=== PATIENT | male | born 1985 | race Caucasian/White ===

== ENCOUNTER 2017-01-10 18:53 | Emergency (ER) | payer OTHER ==
[~2017-01-10] VITALS: Ht 175.3 cm; Wt 83.6 kg
[2017-01-10 19:08] VITALS: BP 127/83
--- NOTE | 2017-01-10 20:05 | RAD ---
History: Injury while playing basketball, swelling. Comparison: None. Findings: AP, lateral, and oblique views of the right ankle. No acute fracture or dislocation is identified. There is some calcification of the interosseous ligament adjacent to the distal tibia. Lateral ankle soft tissue swelling is identified. There is a small well-corticated ossific density adjacent to the medial malleolus, probably representing old avulsion fracture fragment versus ununited apophysis. Impression: 1. No acute osseous traumatic injury identified. 2. Lateral ankle soft tissue swelling. Electronically signed by: Jd Jones MD (01/10/2017 8:02 PM) [facility]
--- NOTE | 2017-01-10 20:12 | PHYS DOC ---
Past History Past Medical History: No Pertinent History Past Surgical History: Other Alcohol Use: Occasionally Drug Use: None Adult General Chief Complaint Chief Complaint: ANKLE PROBLEM HPI HPI Patient is a 31-year-old male presenting to the emergency department for evaluation of right lateral ankle pain status post fall while playing basketball. He reports coming up and then landing directly on his right lateral malleolus and he has not been able to put weight on it since then. He has an abrasion to his medial malleolus and he says that his tetanus is up-to- date. Review of Systems Review of Systems Constitutional: Denies fever or chills [] Neurologic: focal weakness or sensory changes [] Current Medications Current Medications Current Medications Medications (Trade) Dose Ordered Sig/Supriya Start Time Stop Time Status Last Admin Dose Admin Ibuprofen (Motrin) 600 mg 1X ONCE 01/10/17 20:15 01/10/17 20:16 Oxycodone/ Acetaminophen (Percocet 5/325) 2 tab 1X ONCE 01/10/17 20:15 01/10/17 20:16 Allergies Allergies Allergies Coded Allergies Type Severity Reaction Last Updated Verified No Known Drug Allergies 01/10/17 No Physical Exam Physical Exam Constitutional: Well developed, well nourished, no acute distress, non-toxic appearance. [] Extremities: Right ankle with diffuse swelling most notable in the lateral malleolus. He has tenderness on both malleoli but there is no proximal tib-fib pain and there is no bony foot tenderness. Joint is stable and he is distally neurovascularly intact. Neurologic: Alert and oriented X 3, normal motor function, normal sensory function, no focal deficits noted. [] Current Patient Data Vital Signs Vital Signs Date Time Temp Pulse Resp B/P (MAP) Pulse Ox O2 Delivery O2 Flow Rate FiO2 01/10/17 19:08 98.8 88 20 99 Room Air EKG EKG [] Radiology/Procedures Radiology/Procedures History: Injury while playing basketball, swelling. Comparison: None. Findings: AP, lateral, and oblique views of the right ankle. No acute fracture or dislocation is identified. There is some calcification of the interosseous ligament adjacent to the distal tibia. Lateral ankle soft tissue swelling is identified. There is a small well-corticated ossific density adjacent to the medial malleolus, probably representing old avulsion fracture fragment versus ununited apophysis. Impression: 1. No acute osseous traumatic injury identified. 2. Lateral ankle soft tissue swelling. Electronically signed by: Jd Jones MD (01/10/2017 8:02 PM) [facility] DICTATED AND SIGNED BY: JD JONES MD DATE: 01/10/171999 Course & Med Decision Making Course & Med Decision Making On x-ray it is difficult to tell if this is an acute fracture or old fractures he has had fractures in the past. Either way and I am putting him in a splint and recommending rice NSAIDs orthopedic follow-up later this week and to come back to the ER sooner with any worsening pain weakness or other general concerns. Patient aware and agreeable with plan and verbalized understanding of the above instructions. Dragon Disclaimer Dragon Disclaimer This chart was dictated in whole or in part using Voice Recognition software in a busy, high-work load, and often noisy Emergency Department environment. It may contain unintended and wholly unrecognized errors or omissions. Departure Departure: Impression: Primary Impression: Ankle sprain Disposition: 01 HOME, SELF-CARE Condition: GOOD Referrals: PCP,UNKNOWN (PCP) Patient Instructions: Ankle Sprain Additional Instructions: TAKE 400MG OF IBUPROFEN EVERY 6 HOURS AND THE NORCO FOR BREAKTHROUGH PAIN. FOLLOW WITH THE ORTHO DOCTOR OR YOUR PCP LATER THIS WEEK. STAY OFF OF IT UNTIL CLEARED BY YOUR DOCTOR. Problem Qualifiers Primary Impression: Ankle sprain Encounter type: initial encounter Involved ligament of ankle: calcaneofibular ligament Laterality: right Qualified Codes: S93.411A - Sprain of calcaneofibular ligament of right ankle, initial encounter NESTOR POOL DO Jan 10, 2017 20:12
[2017-01-10] MEDS ORDERED: IBUPROFEN 600 MG TABLET. PO ONE (20:15)
[2017-01-10] MEDS ORDERED: oxyCODONE/APAP 5/325 1 TAB TABLET PO ONE (20:15)
== END 2017-01-10 20:30 | disposition home or self-care (01) ==
LOC: ER 18:53
DX: S93.411A Sprain of calcaneofibular ligament of right ankle, initial encounter (principal); W19.XXXA Unspecified fall, initial encounter; Y93.67 Activity, basketball; Y99.8 Other external cause status; Y92.89 Other specified places as the place of occurrence of the external cause
CPT/HCPCS: 29515; 73610; 99285-25